=== PATIENT | male | born 1960 | race Caucasian/White ===

== ENCOUNTER 2016-04-18 10:59 | Observation (INO) | payer OTHER ==
[~2016-04-18 10:59] MED LIST: LIDOCAINE W/ SODIUM BICARB 0.5 ML SYR ONE; Lactated Ringers 1,000 ML PRIMARY IV ONE; ceFAZolin Inj 2gm (Premix) 50 ML IV ONE
[2016-04-18] MEDS ORDERED: EPINEPHrine Inj (1:1,000) 30mg/30ml vial ONE (11:09)
[2016-04-18] MEDS ORDERED: Ropivacaine 0.2% VIAL 20 ML ONE (11:09)
[2016-04-18] MEDS ORDERED: fentaNYL Inj 250 MCG/5 ML VIAL ONE (11:49)
[2016-04-18] MEDS ORDERED: MIDAZOLAM 5 MG/1 ML ONE ×2 (11:49→12:05)
[2016-04-18] MEDS ORDERED: BUPivacaine Inj 0.5% PF (5mg/ml) 30ml vial ONE (12:05)
[2016-04-18] MEDS ORDERED: fentaNYL Inj 100 MCG/2 ML VIAL ONE (12:05)
[2016-04-18] MEDS ORDERED: DEXAMETHASONE SOD PHOSPHATE 4 MG/1 ML VIAL ONE (12:05)
[2016-04-18] MEDS ORDERED: LIDOCAINE 2%/ EPI 1:200,000 - 20 ML VIAL ONE (12:05)
--- NOTE | 2016-04-18 13:02 | CRNA.PROCE ---
Nerve Block Documentation - - Type of Nerve Block Used: Right Interscalene Block Position for Nerve Block: Supine Moniters Used During Block: EKG, SPO2, NIBP Oxygen Sumpplented: Yes Sedation Used - Enter Amount in Comment Field: Midazolam (mg): Yes Stimulation Hz: 2 Stimulation Staring mA: 1.4 Stimulation Ending mA: 0.4 Local Anesthetic - Enter Amt in Comment Field: 0.5 % Bupivacaine Plain (mL): Yes (20ml), 1 % Xylocaine with Epinephrine 1:100,000 (mL): Yes (20ml) Additives to Nerve Blocks: Dexamethasone (mL): Yes (8mg(2ml))
[2016-04-18] MEDS ORDERED: Sodium Chloride 0.9% vial 10 ML ONE (13:09)
[2016-04-18] MEDS ORDERED: VECURONIUM BROMIDE 10 MG VIAL ONE (13:09)
[2016-04-18] MEDS ORDERED: LIDOCAINE MPF 2% - 5 ML (20 MG/1 ML) ONE (13:10)
[2016-04-18] MEDS ORDERED: KETAMINE 100 MG/1 ML - 5 ML ONE (13:12)
[2016-04-18] MEDS ORDERED: Lactated Ringers 1,000 ML PRIMARY IV ONE ×2 (14:08→14:33)
[2016-04-18] MEDS ORDERED: MORPHINE SULFATE 2 MG/1 ML IVP PRN (17:23)
[2016-04-18] MEDS ORDERED: ONDANSETRON 4 MG/2 ML VIAL IVP PRN ×2 (17:23→17:36)
[2016-04-18] MEDS ORDERED: HYDROcodone-APAP 10 MG-325 MG TABLET PO PRN (17:23)
[2016-04-18] MEDS ORDERED: fentaNYL Inj 100 MCG/2 ML VIAL IVP PRN (17:36)
[2016-04-18] MEDS ORDERED: ATROPINE SULFATE 0.4 MG/1 ML VIAL IVP PRN (17:36)
[2016-04-18] MEDS ORDERED: NORMAL SALINE 10 ML SYRINGE FLUSH IVP PRN (17:36)
[2016-04-18] MEDS ORDERED: Ondansetron ODT Tab 8 MG TAB PO PRN (17:36)
[2016-04-18] MEDS: HYDROmorphone 2 MG/1 ML IVP PRN ×2 (17:53→17:59)
[2016-04-18] MEDS: Lactated Ringers 1,000 ML PRIMARY IV SCH ×2 (20:31→22:47)
[2016-04-18] MEDS ORDERED: MORPHINE SULFATE 10 MG/1 ML IV PRN (21:19)
[2016-04-18] MEDS ORDERED: MORPHINE SULFATE 4 MG/1 ML IVP PRN (21:19)
[2016-04-18] MEDS ORDERED: ONDANSETRON 4 MG/2 ML VIAL ONE (21:20)
[2016-04-18] MEDS: NORMAL SALINE 10 ML SYRINGE FLUSH IVP PRN (21:22)
[2016-04-18] MEDS ORDERED: KETOROLAC 30 MG/1 ML VIAL IVP PRN (22:38)
[2016-04-19] MEDS ORDERED: diphenhydrAMINE 25 MG CAPSULE PO PRN (04:10)
[2016-04-19] MEDS: NORMAL SALINE 10 ML SYRINGE FLUSH IVP PRN (04:16)
[2016-04-19] MEDS ORDERED: MORPHINE SULFATE 4 MG/1 ML IVP PRN (07:44)
[2016-04-19] MEDS ORDERED: MORPHINE SULFATE 2 MG/1 ML IVP PRN (07:45)
[2016-04-19] MEDS ORDERED: MORPHINE SULFATE 10 MG/1 ML IV PRN (07:45)
[2016-04-19 08:05] VITALS: RESP 18
[2016-04-19 08:09] VITALS: TEMP 97.9
[2016-04-19] MEDS ORDERED: oxyCODONE/APAP 7.5/325 Tab 1 TAB TAB PO PRN (08:21)
--- NOTE | 2016-04-19 08:41 | PDOC(PROG) ---
General Note Progress Note: Patient is a patient of Dr. Corado, he just left [facility], patient is discharge home, he had a left shoulder surgery yesterday. However he did not tolerate the hydrocodone because of itching. He requested a different kind of medication and he got the Percocet just now. I told him that I will write a prescription for Percocet but will wait to see that he doesn't have any side effects and if he doesn't will write a prescription for it. Patient wants to leave today earlier because of the weather and he lives in [place].
--- NOTE | 2016-04-19 10:46 | OT AM DAY ---
Diagnosis : Right Rotator Cuff Repair AM - INPATIENT OBSERVATION O: The patient was instructed in activities of daily living including dressing and bathing, as well as shoulder do's and don'ts. The patient's dressing was changed with sterile 4X4s and tape. The patient was issued a cryo cuff for the right shoulder and instructed in its proper use and care. After getting dressed, the patient's dress was adjusted to fit him appropriately. P: No further therapy is indicated at this time. The patient will begin outpatient physical therapy in [place]. CHRISTIAN
== END 2016-04-19 09:15 | disposition home or self-care (01) ==
LOC: SDSC 10:59 → MED/SURG 18:00
PROVIDERS: ADMIT Orthopaedic Surgery; ATTEND Orthopaedic Surgery
DX: M75.121 Complete rotator cuff tear or rupture of right shoulder, not specified as traumatic (principal); M75.21 Bicipital tendinitis, right shoulder; M75.41 Impingement syndrome of right shoulder
CPT/HCPCS: 23412; 29823; 29824; 29826; 94761; 96374; 97535; A4216; J0171; J0690; J1885; J2795; J3010 ×2; J1100; J2001; J2250; J2405; J3490; J7120